=== PATIENT | female | born 1960 | race Two or more races ===

== ENCOUNTER 2018-08-02 09:43 | Outpatient (CLI) | payer OTHER ==
[~2018-08-02] VITALS: Ht 162.6 cm; Wt 114.8 kg
== END 2018-08-02 10:00 | disposition home or self-care (01) ==
LOC: OFIC 805 09:43
DX: J32.8 Other chronic sinusitis (principal); R09.81 Nasal congestion; H92.03 Otalgia, bilateral

== ENCOUNTER 2018-09-20 12:36 | Outpatient (CLI) | payer OTHER ==
[~2018-09-20] VITALS: Ht 152.4 cm; Wt 114.8 kg
== END 2018-09-20 12:48 | disposition home or self-care (01) ==
LOC: OFIC 805 12:36
DX: J32.9 Chronic sinusitis, unspecified (principal); R09.81 Nasal congestion; H60.599 Other noninfective acute otitis externa, unspecified ear; J30.9 Allergic rhinitis, unspecified

== ENCOUNTER 2019-01-24 08:10 | Outpatient (CLI) | payer OTHER ==
[~2019-01-24] VITALS: Ht 152.4 cm; Wt 115.7 kg
== END 2019-01-24 08:25 | disposition home or self-care (01) ==
LOC: OFIC 805 08:10
DX: J32.8 Other chronic sinusitis (principal); R09.81 Nasal congestion; H93.90 Unspecified disorder of ear, unspecified ear; J30.89 Other allergic rhinitis

== ENCOUNTER 2019-02-04 16:26 | Outpatient (CLI) | payer OTHER ==
[~2019-02-04] VITALS: Ht 152.4 cm; Wt 114.8 kg
== END 2019-02-04 16:40 | disposition home or self-care (01) ==
LOC: OFIC 805 16:26
DX: J32.8 Other chronic sinusitis (principal); R09.81 Nasal congestion; H93.90 Unspecified disorder of ear, unspecified ear; J30.89 Other allergic rhinitis; R04.0 Epistaxis

== ENCOUNTER 2019-03-07 08:32 | Outpatient (CLI) | payer OTHER ==
[~2019-03-07] VITALS: Ht 152.4 cm; Wt 114.8 kg
== END 2019-03-07 08:50 | disposition home or self-care (01) ==
LOC: OFIC 805 08:32
DX: J32.8 Other chronic sinusitis (principal); R09.81 Nasal congestion; J30.89 Other allergic rhinitis; R04.0 Epistaxis

== ENCOUNTER 2024-06-20 08:09 | Outpatient (CLI) | payer OTHER | END 2024-06-20 08:12 | disposition home or self-care (01) | LOC: SONOGRAMA 08:09 | PROVIDERS: ATTEND Pathology Anatomic Pathology & Clinical Pathology | DX: R59.0 Localized enlarged lymph nodes (principal); R22.1 Localized swelling, mass and lump, neck; C73 Malignant neoplasm of thyroid gland ==